=== PATIENT | female | born 1955 | race Caucasian/White ===

== ENCOUNTER 2023-10-15 20:38 | Emergency (ER) | payer MEDICARE ==
[~2023-10-15] VITALS: Ht 152.4 cm; Wt 45.4 kg
[2023-10-15 20:45] VITALS: PULSE 84; RESP 18; TEMP 98.4; O2SAT 100
[2023-10-15] MEDS ORDERED: ULTRAM 50MG50 MG PO (20:53)
[2023-10-15] MEDS ORDERED: AMOX TR-K CLV1 EAC2 PO (20:53)
[2023-10-15] MEDS: TETANUS/DIPHTHERIA TOX ADULT 0.5 ML SYR IM ONE (20:54)
[2023-10-15] MEDS ORDERED: ONDANSETRON ODT4 MG PO (20:56)
== END 2023-10-15 21:03 | disposition home or self-care (01) ==
LOC: ER 20:47
DX: S91.331A Puncture wound without foreign body, right foot, initial encounter (principal); W45.0XXA Nail entering through skin, initial encounter; Y93.01 Activity, walking, marching and hiking; Y92.89 Other specified places as the place of occurrence of the external cause
CPT/HCPCS: 90471; 90714; 99282

== ENCOUNTER 2024-03-01 19:25 | Emergency (ER) | payer MEDICARE ==
[~2024-03-01] VITALS: Ht 152.4 cm; Wt 47.6 kg
[~2024-03-01 19:25] MED LIST: AMOX TR-K CLV1 EAC2 PO; ONDANSETRON ODT4 MG PO; ULTRAM 50MG50 MG PO
[2024-03-01 19:43] VITALS: PULSE 96; RESP 16; TEMP 98.4; O2SAT 96
[2024-03-01 20:07] LABS: BASOPHILS # (AUTO) 0.1 (0.0-0.1); BASOPHILS % 0.6 % (0.0-1.0); EOSINOPHILS % 0.2 % (0.0-6.0); LYMPHOCYTES # (AUTO) 0.9 (1.0-3.2); LYMPHOCYTES % 10.9 % (18.0-39.1); MEAN CORPUSCULAR HEMOGLOBIN 29.2 pg (28-32); MEAN CORPUSCULAR VOLUME 94.4 fL (81-99); MONOCYTES # (AUTO) 0.6 (0.2-0.8); MONOCYTES % 7.3 % (4.4-11.3); NEUTROPHILS # (AUTO) 6.8 (2.1-6.9); NEUTROPHILS % 80.6 % (38.7-80.0); PLATELET COUNT 253 x10e3/uL (140-360); RED BLOOD COUNT 4.45 x10e6/uL (3.6-5.1); RED CELL DISTRIBUTION WIDTH 12.5 % (11.7-14.4); WHITE BLOOD COUNT 8.41 x10e3/uL (4.8-10.8)
[2024-03-01 20:12] LABS: AMPHETAMINES SCREEN,URINE NEGATIVE (NEGATIVE); BENZODIAZEPINES SCREEN,URINE NEGATIVE (NEGATIVE); CANNABINOIDS SCREEN,URINE NEGATIVE (NEGATIVE); COCAINE SCREEN,URINE NEGATIVE (NEGATIVE); METHADONE SCREEN, URINE NEGATIVE (NEGATIVE); OPIATES SCREEN,URINE NEGATIVE (NEGATIVE); PHENCYCLIDINE SCREEN,URINE NEGATIVE (NEGATIVE)
[2024-03-01 20:24] LABS: ALBUMIN 4.5 g/dL (3.5-5.0); ALBUMIN/GLOBULIN RATIO 1.5 (0.8-2.0); ANION GAP 16.7 mmol/L (8-16); BILIRUBIN,TOTAL 0.5 mg/dL (0.2-1.2); CALCIUM 10.4 mg/dL (8.4-10.2); CREATININE, SERUM 0.83 mg/dL (0.57-1.11); POTASSIUM 3.7 mmol/L (3.5-5.1); TOTAL PROTEIN 7.6 g/dL (6.5-8.1)
[2024-03-01 20:30] LABS: TROPONIN I 0.007 ng/mL (0-0.300)
[2024-03-01] MEDS: KETOROLAC TROMETHAMINE 30 MG/ML VIAL IV STA (22:13)
== END 2024-03-01 22:05 | disposition home or self-care (01) ==
LOC: ER 19:45
DX: R06.02 Shortness of breath (principal); R07.89 Other chest pain; E78.5 Hyperlipidemia, unspecified; Z87.19 Personal history of other diseases of the digestive system
CPT/HCPCS: 36415; 71045; 80053; 80307; 82550; 83690; 83880; 84484; 85025; 93005; 99283; J1885